=== PATIENT | male | born 1995 | race Caucasian/White ===

== ENCOUNTER 2019-01-09 10:28 | Emergency (ER) | payer OTHER ==
[~2019-01-09] VITALS: Ht 170.2 cm; Wt 80.1 kg
[2019-01-09 10:35] VITALS: BP 121/81
== END 2019-01-09 11:26 | disposition home or self-care (01) ==
LOC: ED 11:20
DX: J03.91 Acute recurrent tonsillitis, unspecified (principal)
CPT/HCPCS: 99283